=== PATIENT | female | born 1955 | race Caucasian/White ===

== ENCOUNTER 2022-06-28 11:43 | Outpatient (CLI) | payer OTHER | END 2022-06-28 11:44 | disposition home or self-care (01) | LOC: CSHRAD 11:43 | PROVIDERS: ATTEND Student in an Organized Health Care Education/Training Program | DX: M89.8X8 Other specified disorders of bone, other site (principal); R53.82 Chronic fatigue, unspecified; M17.12 Unilateral primary osteoarthritis, left knee; M16.12 Unilateral primary osteoarthritis, left hip ==

== ENCOUNTER 2023-12-26 14:53 | Outpatient (CLI) | payer OTHER | END 2023-12-26 14:54 | disposition home or self-care (01) | LOC: CSHMAMMO 14:53 | PROVIDERS: ATTEND Student in an Organized Health Care Education/Training Program | DX: Z12.31 Encounter for screening mammogram for malignant neoplasm of breast (principal); Z13.820 Encounter for screening for osteoporosis; Z78.0 Asymptomatic menopausal state | CPT/HCPCS: 77063; 77067; 77080 ==